=== PATIENT | female | born 1955 | race Caucasian/White ===

== ENCOUNTER 2016-11-01 22:29 | Emergency (ER) | payer OTHER ==
[2016-11-01 22:51] VITALS: O2SAT 96
--- NOTE | 2016-11-01 23:10 | ERPHSYRPT ---
- History of Present Illness Time Seen by Provider: 11/01/16 23:04 Source: patient Exam Limitations: no limitations Physician History: The patient is a 61-year-old female with a friend complaining that a neighbors dog bit her today. 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 It is a great Kyle. It bit her on the left forearm, left abdomen, and left breast. The wounds are all superficial. Her tetanus vaccination was 5-6 years ago. The police have been notified. Her past medical history is significant for kidney stones. Timing/Duration: today Quality: painful Severity: mild Location: torso, extremities Possible Causes: other (dog bite) Associated Symptoms: denies symptoms Allergies/Adverse Reactions: levofloxacin [From Levaquin] Allergy (Verified 10/01/14 14:51) Hx Tetanus, Diphtheria Vaccination/Date Given: Yes (4) Hx Influenza Vaccination/Date Given: No Hx Pneumococcal Vaccination/Date Given: No - Review of Systems Constitutional: No Fever, No Chills Eyes: No Symptoms Ears, Nose, & Throat: No Symptoms Respiratory: No Cough, No Dyspnea Cardiac: No Chest Pain, No Edema, No Syncope Abdominal/Gastrointestinal: No Abdominal Pain, No Nausea, No Vomiting, No Diarrhea Genitourinary Symptoms: No Dysuria Musculoskeletal: No Back Pain, No Neck Pain Skin: Other (skin tears) Neurological: No Dizziness, No Focal Weakness, No Sensory Changes Psychological: No Symptoms Endocrine: No Symptoms Hematologic/Lymphatic: No Symptoms Immunological/Allergic: No Symptoms All Other Systems: Reviewed and Negative - Past Medical History Pertinent Past Medical History: No - Past Surgical History Past Surgical History: Yes Gastrointestinal: Cholecystectomy - Social History Smoking Status: Never smoker Exposure to second hand smoke: No Drug Use: none Patient Lives Alone: No - Nursing Vital Signs Nursing Vital Signs: Initial Vital Signs Temperature 97.8 F Temperature Source Oral Pulse Rate 64 Respiratory Rate 16 Blood Pressure [Right Arm] 117/78 Pain Intensity 2 - Physical Exam General Appearance: no apparent distress, alert Eye Exam: PERRL/EOMI, eyes nml inspection Ears, Nose, Throat Exam: normal ENT inspection, pharynx normal, moist mucous membranes Neck Exam: normal inspection, non-tender, supple, full range of motion Respiratory Exam: normal breath sounds, lungs clear, No respiratory distress Cardiovascular Exam: regular rate/rhythm, normal heart sounds Gastrointestinal/Abdomen Exam: soft Pelvic Exam: not done Rectal Exam: not done Back Exam: normal inspection, normal range of motion, No CVA tenderness, No vertebral tenderness Extremity Exam: normal inspection, normal range of motion Neurologic Exam: alert, oriented x 3, cooperative, normal mood/affect, sensation nml, No motor deficits Skin Exam: laceration (Examination of the skin reveals a small abrasion in the superior left breast, a small abrasion to the left torso, and a small skin tear to the mid left forearm.) SpO2 Interpretation: normal SpO2: 96 Oxygen Delivery: Room Air - Departure Time of Disposition: 23:12 Departure Disposition: Home Clinical Impression: Dog bite Condition: Stable Critical Care Time: No Additional Instructions: You have multiple superficial skin tears from being bitten by a dog. You were given a tetanus vaccination in the ER. You were also given Augmentin 875 in the ER. Continue to take Augmentin 875 twice a day for 10 days. Follow-up as needed. Prescriptions: Amoxicillin/Potassium Clav [Augmentin 875-125 Tablet] 875 mg PO BID #20 tablet
[2016-11-01] MEDS ORDERED: Adacel Vial IM ONE ×2 (23:12→23:15)
[2016-11-01] MEDS ORDERED: Augmentin 875-125 Tablet PO ONE (23:12)
[2016-11-01] MEDS ORDERED: Augmentin 875-125 Tablet ONE (23:14)
[2016-11-01] MEDS ORDERED: BACIGUENT PACKET TP ONE (23:34)
[2016-11-01] MEDS ORDERED: BACIGUENT PACKET ONE (23:35)
[2016-11-01 23:43] VITALS: BP 112/75; PULSE 68
== END 2016-11-01 23:43 | disposition home or self-care (01) ==
LOC: ED 22:29
DX: S50.872A Other superficial bite of left forearm, initial encounter (principal); S20.172A Other superficial bite of breast, left breast, initial encounter; S30.871A Other superficial bite of abdominal wall, initial encounter; S20.112A Abrasion of breast, left breast, initial encounter; S30.811A Abrasion of abdominal wall, initial encounter; W54.0XXA Bitten by dog, initial encounter
CPT/HCPCS: 90471; 90715; 99282; 99284; A9270-GY

== ENCOUNTER 2021-08-29 19:59 | Emergency (ER) | payer MEDICARE, OTHER ==
--- NOTE | 2021-08-29 20:04 | ERPHSYRPT ---
- History of Present Illness Time Seen by Provider: 08/29/21 20:04 Source: patient, family Exam Limitations: no limitations Physician History: This is a 66-year-old white female is right-handed and tripped over her shoelace and fell onto her right outstretched hand. Occurred prior to arrival. She has no other pain complaints. She presents with right wrist pain and deformity. Patient has had Nubain in the past which she tolerated well. she does not want any narcotics for home Occurred: just prior to arrival Method of Injury: fell Quality: aching, throbbing Severity of Pain-Max: moderate Severity of Pain-Current: moderate Extremities Pain Location: wrist: right Modifying Factors: Improves With: movement Associated Symptoms: none Allergies/Adverse Reactions: levofloxacin [From LevConnectSoft] Allergy (Verified 11/01/16 23:21) Home Medications: Amlodipine Besylate 10 mg [Norvasc 10 MG] 1 mg HS 11/01/16 [History] Escitalopram Oxalate 10 mg [Lexapro 10 MG] 1 tab DAILY 11/01/16 [History] Hx Tetanus, Diphtheria Vaccination/Date Given: Yes (4) Hx Influenza Vaccination/Date Given: No Hx Pneumococcal Vaccination/Date Given: No Travel Risk - International Travel Have you traveled outside of the country in past 3 weeks: No - Coronavirus Screening Are you exhibiting any of the following symptoms?: No Close contact with a COVID-19 positive Pt in past 14-21 Days: No - Review of Systems Constitutional: No Symptoms Eyes: No Symptoms Ears, Nose, & Throat: No Symptoms Respiratory: No Symptoms Cardiac: No Symptoms Abdominal/Gastrointestinal: No Symptoms Genitourinary Symptoms: No Symptoms Musculoskeletal: Deformity (right wrist), Fall, Injury Skin: No Symptoms Neurological: No Symptoms Psychological: No Symptoms Endocrine: No Symptoms Hematologic/Lymphatic: No Symptoms Immunological/Allergic: No Symptoms All Other Systems: Reviewed and Negative - Past Medical History Pertinent Past Medical History: No Cardiac History: Hypertension Musculoskeletal History: Arthritis Other Medical History: C/O O.A. TO B HANDS, ELBOW, BACK, KNEES, - Past Surgical History Past Surgical History: No Gastrointestinal: Cholecystectomy - Social History Smoking Status: Never smoker Exposure to second hand smoke: No Drug Use: none Patient Lives Alone: No - Physical Exam General Appearance: no apparent distress, alert, anxiety Eyes, Ears, Nose, Throat Exam: normal ENT inspection, moist mucous membranes Neck Exam: normal inspection, non-tender, supple, full range of motion Cardiovascular/Respiratory Exam: chest non-tender, no respiratory distress Abdominal Exam: non-tender Back Exam: normal inspection Shoulder Exam: normal inspection, non-tender, no evidence of injury, normal ROM Elbow/Forearm Exam: normal inspection, non-tender, no evidence of injury, ecchymosis Wrist Exam: bone tenderness, deformity, soft tissue tenderness, swelling Hand Exam: normal inspection, non-tender, no evidence of injury, normal ROM Neuro/Tendon Exam: normal sensation, normal motor functions, normal tendon functions Mental Status Exam: alert, oriented x 3, cooperative Skin Exam: normal color, warm, dry SpO2 Interpretation: normal O2 Delivery: Room Air - Course Nursing assessment & vital signs reviewed: Yes Ordered Tests: Active Orders 24 hr Category Date Time Status WRIST (MIN 3 VIEWS) Stat Exams 08/29/21 Ordered - Progress Progress: improved, pain not gone completely, re-examined Progress Note: 08/29/21 20:40 post splint nv check normal Counseled pt/family regarding: diagnosis, need for follow-up, rad results - Departure Departure Disposition: Home Clinical Impression: Right wrist fracture Condition: Stable Critical Care Time: No Referrals: KOMAL VILLALOBOS MD [Primary Care Provider] - [facility]-Ortho M-F [phone] (right distal radius fx) Additional Instructions: ice pack to area 3 times daily. use tylenol and ibuprofen for pain control. follow up tomorrow, 08/30/21, at [facility] orthopedic walk in clinic at 8am for further evaluation and management
[2021-08-29] MEDS ORDERED: Nubain 10 MG/ML ONE (20:37)
[2021-08-29] MEDS ORDERED: ZOFRAN ODT 4 MG ONE (20:37)
[2021-08-29] MEDS: Nubain 10 MG/ML IM ONE (20:39)
[2021-08-29] MEDS: ZOFRAN ODT 4 MG PO ONE (20:39)
[2021-08-29 21:02] VITALS: BP 142/75; PULSE 87; O2SAT 98
--- NOTE | 2021-08-31 01:19 | XRAY ---
Exam: 3 views of the left wrist from 08/29/2021. Comparison: [None.] Indication: Fall, injury, pain. Findings: AP, oblique, and 2 lateral radiographs of the left wrist were obtained. The bones are significantly demineralized. A mildly impacted, comminuted fracture of the distal left radius is seen. There appears to be a fracture line which extends into the distal radial articular surface of the radius along the ulnar aspect. There is minimal posterior cortical step-off deformity and slight posterior angulation of the radius. A tiny round calcification is seen adjacent to the right ulnar styloid process. However, its smooth contour suggests that this is probably old. The carpal bones appear grossly intact. Impression: 1. Mildly comminuted acute fracture of the distal left radius, as discussed above. 2. Bone demineralization.
== END 2021-08-29 20:56 | disposition home or self-care (01) ==
LOC: ED 19:59
DX: S52.502A Unspecified fracture of the lower end of left radius, initial encounter for closed fracture (principal); W01.198A Fall on same level from slipping, tripping and stumbling with subsequent striking against other object, initial encounter; M25.532 Pain in left wrist; I10 Essential (primary) hypertension; Z79.899 Other long term (current) drug therapy
CPT/HCPCS: 73110; 96372; 99284; A4570; J2300; Q0162

== ENCOUNTER 2024-03-12 20:52 | Emergency (ER) | payer MEDICARE ==
--- NOTE | 2024-03-12 21:09 | ERPHSYRPT ---
- History of Present Illness Time Seen by Provider: 03/12/24 21:07 Source: patient Exam Limitations: no limitations Physician History: 68-year-old female presents to our ED for evaluation of nausea and vomiting. No diarrhea no rash no abdominal pain no chest pain. No dysuria. Patient states she is unable to tolerate p.o. Symptoms are mild to moderate in intensity. No specific worsening or improving factors. Patient reports her symptoms started yesterday at 7 PM. Patient denies fever. No dizziness. No weakness. Patient otherwise feels well. She voices no other complaints or concerns at this time. Portions of this note were created with voice recognition technology. There may be grammatical, spelling, punctuation or sound alike errors Timing/Duration: today Severity: moderate Modifying Factors: Improves With: nothing Associated Symptoms: denies symptoms Allergies/Adverse Reactions: levofloxacin [From Levaquin] Allergy (Verified 03/12/24 21:00) syncopy twice " Home Medications: Alendronate Sodium [Fosamax] 70 mg PO WEEKLY 07/11/23 [History] Amlodipine Besylate [Norvasc] 10 mg PO DAILY 07/11/23 [History] Atorvastatin Calcium 10 mg PO DAILY 07/11/23 [History] Cholecalciferol (Vitamin D3) [Vitamin D] 1,000 unit PO DAILY 07/11/23 [History] Omeprazole 20 mg PO DAILY 03/12/24 [History] Ondansetron [Ondansetron Odt ] 4 mg PO Q6HPRN PRN 03/12/24 [History] Hx Tetanus, Diphtheria Vaccination/Date Given: Yes (4) Hx Influenza Vaccination/Date Given: No Hx Pneumococcal Vaccination/Date Given: No - Review of Systems Constitutional: No Symptoms, No Fever, No Chills Eyes: No Symptoms Ears, Nose, & Throat: No Symptoms Respiratory: No Symptoms, No Cough, No Dyspnea Cardiac: No Symptoms, No Chest Pain, No Edema, No Syncope Abdominal/Gastrointestinal: No Symptoms, No Abdominal Pain, No Nausea, No Vomiting, No Diarrhea Genitourinary Symptoms: No Symptoms, No Dysuria Musculoskeletal: No Symptoms, No Back Pain, No Neck Pain Skin: No Symptoms, No Rash Neurological: No Symptoms, No Dizziness, No Focal Weakness, No Sensory Changes Psychological: No Symptoms Endocrine: No Symptoms Hematologic/Lymphatic: No Symptoms Immunological/Allergic: No Symptoms All Other Systems: Reviewed and Negative - Past Medical History Pertinent Past Medical History: No Neurological History: No Pertinent History ENT History: No Pertinent History Cardiac History: No Pertinent History Respiratory History: No Pertinent History Endocrine Medical History: No Pertinent History Musculoskeletal History: No Pertinent History GI Medical History: No Pertinent History History: No Pertinent History Psycho-Social History: No Pertinent History Female Reproductive Disorders: No Pertinent History Other Medical History: C/O O.A. TO B HANDS, ELBOW, BACK, KNEES, - Past Surgical History Past Surgical History: Yes Neuro Surgical History: No Pertinent History Cardiac: No Pertinent History Respiratory: No Pertinent History Gastrointestinal: Cholecystectomy Genitourinary: No Pertinent History Musculoskeletal: Orthopedic Surgery Female Surgical History: No Pertinent History Other Surgical History: rt hand and elbow, states hx of kidney stones - Social History Smoking Status: Never smoker Exposure to second hand smoke: No Drug Use: none Patient Lives Alone: No - Nursing Vital Signs Nursing Vital Signs: Initial Vital Signs Blood Pressure 143/95 03/12/24 21:01 O2 Sat by Pulse Oximetry 84 L 03/12/24 21:01 Pain Scale Pain Intensity 0 - Physical Exam General Appearance: no apparent distress, alert Eye Exam: PERRL/EOMI, eyes nml inspection Ears, Nose, Throat Exam: normal ENT inspection, dry mucous membranes Neck Exam: normal inspection, non-tender, supple, full range of motion Respiratory Exam: normal breath sounds, lungs clear, No respiratory distress Cardiovascular Exam: regular rate/rhythm, normal heart sounds, normal peripheral pulses Gastrointestinal/Abdomen Exam: soft, normal bowel sounds, No tenderness, No mass Back Exam: normal inspection, normal range of motion, No CVA tenderness, No vertebral tenderness Extremity Exam: normal inspection, normal range of motion, pelvis stable Neurologic Exam: alert, oriented x 3, cooperative, normal mood/affect, nml cerebellar function, nml station & gait, sensation nml, No motor deficits Skin Exam: normal color, warm, dry, No rash Lymphatic Exam: No adenopathy SpO2 Interpretation: normal O2 Delivery: Room Air - Course Nursing assessment & vital signs reviewed: Yes Ordered Tests: Active Orders 24 hr Category Date Time Status IV Insertion STAT Care 03/12/24 21:06 Active CBC W DIFF Stat Lab 03/12/24 21:10 Completed CMP Stat Lab 03/12/24 21:10 Completed LIPASE Stat Lab 03/12/24 21:10 Completed Manual Differential NC Stat Lab 03/12/24 21:10 Completed TROPONIN Q4H Lab 03/12/24 21:10 Completed TROPONIN Q4H Lab 03/13/24 01:15 Ordered TROPONIN Q4H Lab 03/13/24 05:15 Ordered UA W/RFX UR CULTURE Stat Lab 03/12/24 22:28 Completed Medication Summary Discontinued Medications Generic Name Dose Route Start Last Admin Trade Name Stan PRN Reason Stop Dose Admin Sodium Chloride 1,000 mls @ 999 mls/hr 03/12/24 21:06 03/12/24 22:16 Sodium Chloride 0.9% 1000 Ml IV 03/12/24 22:06 Infused .Q1H1M STA Infusion Sodium Chloride Confirm 03/12/24 21:12 Sodium Chloride 0.9% 1000 Ml Administered 03/12/24 21:13 Dose 1,000 mls @ ud .ROUTE .STK-MED ONE Ketorolac Tromethamine 30 mg 03/12/24 22:39 03/12/24 22:42 Ketorolac Tromethamine 30 Mg/Ml Inj IV 03/12/24 22:40 30 mg STAT ONE Administration Ketorolac Tromethamine Confirm 03/12/24 22:42 Ketorolac Tromethamine 30 Mg/Ml Inj Administered 03/12/24 22:43 Dose 30 mg .ROUTE .STK-MED ONE Ondansetron HCl 4 mg 03/12/24 21:06 03/12/24 21:17 Ondansetron Hcl 4 Mg/2 Ml Vial IV 03/12/24 21:07 4 mg STAT ONE Administration Ondansetron HCl Confirm 03/12/24 21:12 Ondansetron Hcl 4 Mg/2 Ml Vial Administered 03/12/24 21:13 Dose 4 mg .ROUTE .STK-MED ONE Prochlorperazine Edisylate 10 mg 03/12/24 22:39 03/12/24 22:41 Prochlorperazine Edisylate 10 Mg/2 Ml Vial IV 03/12/24 22:40 10 mg STAT ONE Administration Prochlorperazine Edisylate Confirm 03/12/24 22:40 Prochlorperazine Edisylate 10 Mg/2 Ml Vial Administered 03/12/24 22:41 Dose 10 mg .ROUTE .STK-MED ONE Lab/Rad Data: Laboratory Result Diagrams 03/12/24 21:10 03/12/24 21:10 Laboratory Results 03/12/24 03/12/24 03/12/24 Range/Units 22:28 21:10 21:10 WBC (3.98-10.04) x10^3/uL RBC (3.93-5.22) x10^6/uL Hgb (11.2-15.7) g/dL Hct (34.1-44.9) % MCV (79.4-94.8) fL MCH (25.6-32.2) pg MCHC (32.2-35.5) g/dL RDW (11.7-14.4) % Plt Count (182-369) x10^3/uL MPV (9.4-12.3) fL Sodium 137 (135-145) mmol/L Potassium 4.5 (3.5-5.1) mmol/L Chloride 100 (98-107) mmol/L Carbon Dioxide 24 (22-30) mmol/L Anion Gap 17.9 H (5-15) MEQ/L BUN 25 H (7-17) mg/dL Creatinine 0.78 (0.52-1.04) mg/dL Estimated GFR 82.7 ML/MIN Glucose 144 H (74-106) mg/dL Calcium 10.4 H (8.4-10.2) mg/dL Total Bilirubin 1.10 (0.2-1.3) mg/dL AST 108 H (14-36) U/L ALT 87 H (0-35) U/L Alkaline Phosphatase 71 (38-126) U/L Troponin I < 0.012 (0.000-0.033) ng/mL Serum Total Protein 8.6 H (6.3-8.2) g/dL Albumin 5.0 (3.5-5.0) g/dL Lipase 120 (23-300) U/L Urine Color Yellow (Yellow) Urine Appearance Clear (Clear) Urine pH 6.5 (4.6-8.0) Ur Specific [place] 1.020 (1.005-1.030) Urine Protein 30 (Negative) Urine Glucose (UA) Negative (Negative) mg/dL Urine Ketones 40 A (Negative) Urine Blood Negative (Negative) Urine Nitrite Negative (Negative) Urine Bilirubin Negative (Negative) Urine Urobilinogen 0.2 (0.2) mg/dL Ur Leukocyte Esterase Negative (Negative) U Hyaline Cast (Auto) NONE SEEN (0-2) /LPF Urine Microscopic RBC 0-2 (0-5) /HPF Urine Microscopic WBC 0-2 (0-5) /HPF Ur Epithelial Cells None Seen (None Seen) /HPF Urine Bacteria None Seen (None Seen) /HPF Urine Culture Reflexed NO (NO) 03/12/24 Range/Units 21:10 WBC 15.7 H (3.98-10.04) x10^3/uL RBC 4.91 (3.93-5.22) x10^6/uL Hgb 15.1 (11.2-15.7) g/dL Hct 44.7 (34.1-44.9) % MCV 91.0 (79.4-94.8) fL MCH 30.8 (25.6-32.2) pg MCHC 33.8 (32.2-35.5) g/dL RDW 13.2 (11.7-14.4) % Plt Count 395 H (182-369) x10^3/uL MPV 9.5 (9.4-12.3) fL Sodium (135-145) mmol/L Potassium (3.5-5.1) mmol/L Chloride (98-107) mmol/L Carbon Dioxide (22-30) mmol/L Anion Gap (5-15) MEQ/L BUN (7-17) mg/dL Creatinine (0.52-1.04) mg/dL Estimated GFR ML/MIN Glucose (74-106) mg/dL Calcium (8.4-10.2) mg/dL Total Bilirubin (0.2-1.3) mg/dL AST (14-36) U/L ALT (0-35) U/L Alkaline Phosphatase (38-126) U/L Troponin I (0.000-0.033) ng/mL Serum Total Protein (6.3-8.2) g/dL Albumin (3.5-5.0) g/dL Lipase (23-300) U/L Urine Color (Yellow) Urine Appearance (Clear) Urine pH (4.6-8.0) Ur Specific [place] (1.005-1.030) Urine Protein (Negative) Urine Glucose (UA) (Negative) mg/dL Urine Ketones (Negative) Urine Blood (Negative) Urine Nitrite (Negative) Urine Bilirubin (Negative) Urine Urobilinogen (0.2) mg/dL Ur Leukocyte Esterase (Negative) U Hyaline Cast (Auto) (0-2) /LPF Urine Microscopic RBC (0-5) /HPF Urine Microscopic WBC (0-5) /HPF Ur Epithelial Cells (None Seen) /HPF Urine Bacteria (None Seen) /HPF Urine Culture Reflexed (NO) - Progress Progress: improved Progress Note: 68-year-old female presents to our ED for evaluation of nausea and vomiting. No pain. Physical exam exam reveals dry oral mucous membranes. Laboratory workup reveals a leukocytosis however patient has no signs of infection. No fever no pain, lungs are clear urinalysis negative for UTI. IV fluids infused. Patient received antiemetics. Nausea resolved. Patient tolerated p.o. Patient states she feels much better and she is ready for discharge. The leukocytosis is of unclear etiology and significance. However patient agrees to follow-up with her primary care doctor within 48 hours for evaluation. Portions of this note were created with voice recognition technology. There may be grammatical, spelling, punctuation or sound alike errors Complexity of problem addressed is moderate acute complicated no critical care time 03/12/24 23:05 Counseled pt/family regarding: lab results, diagnosis - Departure Departure Disposition: Home Clinical Impression: Nausea and vomiting, Leukocytosis, Dehydration Condition: Stable Critical Care Time: No Referrals: PITER RUSSELL MD [Primary Care Provider] - Follow up/PCP as directed Instructions: Dehydration, Adult ED, Nausea and vomiting in adults Additional Instructions: Please follow-up with your family doctor within 48 hours for reevaluation. Discharge/Care Plan MAYA AVILA was seen on 03/12/24 in the Emergency Room. The patient was counseled regarding Diagnosis,Lab results, Imaging studies, need for follow up and when to return to the Emergency Room. Prescriptions given: Discharge Note I have spoken with the patient and/or caregivers. I have explained the patient's condition, diagnosis and treatment plan based on the information available to me at this time. I have answered the patient's and/or caregiver's questions and addressed any concerns. The patient and/or caregivers have as good understanding of the patient's diagnosis, condition and treatment plan as can be expected at this point. The vital signs have been stable. The patient's condition is stable and appropriate for discharge from the emergency department. The patient will pursue further outpatient evaluation with the primary care physician or other designated or consulting physician as outlined in the disc harge instructions. The patient and/or caregivers are agreeable to this plan of care and follow-up instructions have been explained in detail. The patient and/or caregivers have received these instruction. The patient/and or caregivers are aware that any significant change in condition or worsening of symptoms should prompt an immediate return to this or the closest emergency department or call 911.
[2024-03-12 21:10] VITALS: RESP 16; TEMP 97.1
[2024-03-12] MEDS ORDERED: Sodium Chloride 0.9% 1000 ML 1,000 ML ONE (21:12)
[2024-03-12] MEDS ORDERED: Zofran 4 MG/2 ML VIAL ONE (21:12)
[2024-03-12 21:14] LABS: Hematocrit 44.7 % (34.1-44.9); Hemoglobin 15.1 g/dL (11.2-15.7); Mean Corpuscular Hemoglobin 30.8 pg (25.6-32.2); Mean Corpuscular Hgb Concent. 33.8 g/dL (32.2-35.5); Mean Platelet Volume 9.5 fL (9.4-12.3); Platelet Count 395 x10^3/uL (182-369); Red Blood Count 4.91 x10^6/uL (3.93-5.22); Red Cell Distribution Width 13.2 % (11.7-14.4); White Blood Count 15.7 x10^3/uL (3.98-10.04)
[2024-03-12] MEDS: Sodium Chloride 0.9% 1000 ML 1,000 ML IV STA (21:14)
[2024-03-12] MEDS: Zofran 4 MG/2 ML VIAL IV ONE (21:17)
[2024-03-12 21:28] LABS: ANION GAP 17.9 MEQ/L (5-15); BILIRUBIN,TOTAL 1.1 mg/dL (0.2-1.3); Calcium 10.4 mg/dL (8.4-10.2); Creatinine 1 0.78 mg/dL (0.52-1.04); EST GLOMERULAR FILTRATION RATE 82.7 ML/MIN; Potassium 4.5 mmol/L (3.5-5.1); Total Protein 8.6 g/dL (6.3-8.2)
[2024-03-12] MEDS ORDERED: Compazine 10 MG/2 ML ONE (22:40)
[2024-03-12] MEDS: Compazine 10 MG/2 ML IV ONE (22:41)
[2024-03-12] MEDS: TORAdol 30 mg Injection IV ONE (22:42)
[2024-03-12] MEDS ORDERED: TORAdol 30 mg Injection ONE (22:42)
[2024-03-12 22:45] LABS: Appearance Clear (Clear); Bacteria None Seen /HPF (None Seen); Bilirubin Negative (Negative); Blood Negative (Negative); Epithelial Cells None Seen /HPF (None Seen); Glucose, Urine Negative (Negative); Hyaline Casts NONE SEEN /LPF (0-2); Ketones 40 (Negative); Leukocyte Esterase Negative (Negative); Nitrite Negative (Negative); Ph 6.5 (4.6-8.0); Protein,Urine Dip 30 (Negative); RBC 0-2 /HPF (0-5); Urobilinogen 0.2 mg/dL (0.2); WBC 0-2 /HPF (0-5)
[2024-03-12 23:02] VITALS: BP 136/98; PULSE 85; O2SAT 95
[2024-03-13 00:55] LABS: Lymphocytes 11 % (19.3-51.7); Monocyte 3 % (4.7-12.5); Neutrophils 86 % (34.0-71.1); Platelet Estimate NORMAL (NORMAL); Total Cells Counted 100
== END 2024-03-12 23:09 | disposition home or self-care (01) ==
LOC: ED 20:52
DX: R11.2 Nausea with vomiting, unspecified (principal); D72.829 Elevated white blood cell count, unspecified; E86.0 Dehydration
CPT/HCPCS: 36415; 80053; 81001; 83690; 84484; 85025; 96374; 96375; 99283; 99284; J1885; J2405

== ENCOUNTER 2024-03-29 09:58 | Emergency (ER) | payer MEDICARE ==
[2024-03-29 10:13] VITALS: TEMP 97
--- NOTE | 2024-03-29 10:32 | ERPHSYRPT ---
- History of Present Illness Time Seen by Provider: 03/29/24 10:25 Source: patient Exam Limitations: no limitations Patient Subjective Stated Complaint: pt states she feels like she is anxious and is claustrophic since last night she states she has had 2 other episodes like this since having the flu Triage Nursing Assessment: pt alert, walked in, resp easy, skin w/d/p. appears anxious at times, moves all ext well , brayan any pain or injury . Physician History: pt states she feels like she is anxious and is claustrophic since last night she states she has had 2 other episodes like this since having the flu Timing/Duration: week(s) (1-2 weeks) Severity: moderate Associated Symptoms: other (severe anxiety episodes) Allergies/Adverse Reactions: levofloxacin [From Levaquin] Allergy (Verified 03/29/24 10:09) syncopy twice " Home Medications: Alendronate Sodium [Fosamax] 70 mg PO WEEKLY 07/11/23 [History] Amlodipine Besylate [Norvasc] 10 mg PO DAILY 07/11/23 [History] Atorvastatin Calcium 10 mg PO DAILY 07/11/23 [History] Cholecalciferol (Vitamin D3) [Vitamin D] 1,000 unit PO DAILY 07/11/23 [History] Omeprazole 20 mg PO DAILY 03/12/24 [History] Ondansetron [Ondansetron Odt ] 4 mg PO Q6HPRN PRN 03/12/24 [History] Hx Tetanus, Diphtheria Vaccination/Date Given: Yes (4) Hx Influenza Vaccination/Date Given: No Hx Pneumococcal Vaccination/Date Given: No Immunizations Up to Date: Yes Travel Risk - International Travel Have you traveled outside of the country in past 3 weeks: No - Emerging Infectious Disease Are you exhibiting symptoms associated with any current EIDs: No Symptoms: Vomitting - Review of Systems Constitutional: No Fever, No Chills Eyes: No Symptoms Ears, Nose, & Throat: No Symptoms Respiratory: No Cough, No Dyspnea Cardiac: No Chest Pain, No Edema, No Syncope Abdominal/Gastrointestinal: No Abdominal Pain, No Nausea, No Vomiting, No Diarrhea Genitourinary Symptoms: No Dysuria Musculoskeletal: No Back Pain, No Neck Pain Skin: No Rash Neurological: No Dizziness, No Focal Weakness, No Sensory Changes Psychological: Anxiety Endocrine: No Symptoms All Other Systems: Reviewed and Negative - Past Medical History Pertinent Past Medical History: No Neurological History: No Pertinent History ENT History: No Pertinent History Cardiac History: No Pertinent History Respiratory History: No Pertinent History Endocrine Medical History: No Pertinent History Musculoskeletal History: No Pertinent History GI Medical History: No Pertinent History History: No Pertinent History Psycho-Social History: No Pertinent History Female Reproductive Disorders: No Pertinent History Other Medical History: C/O O.A. TO B HANDS, ELBOW, BACK, KNEES, flu 2023 - Past Surgical History Past Surgical History: Yes Neuro Surgical History: No Pertinent History Cardiac: No Pertinent History Respiratory: No Pertinent History Gastrointestinal: Cholecystectomy Genitourinary: No Pertinent History Musculoskeletal: Orthopedic Surgery Female Surgical History: No Pertinent History Other Surgical History: rt hand and elbow, states hx of kidney stones - Social History Smoking Status: Never smoker Exposure to second hand smoke: No Drug Use: none Patient Lives Alone: No - Social Determinants of Health Will the patient participate in the screening: Yes Do you worry about a steady place to live?: No Do you have any problems with any of the following?: No known problems In the past 12 months,have you had to go without utilities?: No Transportation Issues: No Has anyone in your support network made you feel unsafe?: No Have you or anyone in your house had to go without enough: No - Nursing Vital Signs Nursing Vital Signs: Initial Vital Signs Temperature 97.0 F 03/29/24 10:12 Pulse Rate 71 03/29/24 10:12 Respiratory Rate 18 03/29/24 10:12 Blood Pressure 142/87 03/29/24 10:12 O2 Sat by Pulse Oximetry 97 03/29/24 10:12 Pain Scale Pain Intensity 0 - Physical Exam General Appearance: no apparent distress, alert Eye Exam: PERRL/EOMI, eyes nml inspection Ears, Nose, Throat Exam: normal ENT inspection, TMs normal, pharynx normal, moist mucous membranes Neck Exam: normal inspection, non-tender, supple, full range of motion Respiratory Exam: normal breath sounds, lungs clear, No respiratory distress Cardiovascular Exam: regular rate/rhythm, normal heart sounds, normal peripheral pulses Gastrointestinal/Abdomen Exam: soft, normal bowel sounds, No tenderness, No mass Back Exam: normal inspection, normal range of motion, No CVA tenderness, No vertebral tenderness Extremity Exam: normal inspection, normal range of motion, pelvis stable Neurologic Exam: alert, oriented x 3, cooperative, normal mood/affect, nml cerebellar function, nml station & gait, sensation nml, No motor deficits Skin Exam: normal color, warm, dry, No rash Lymphatic Exam: No adenopathy SpO2: 97 - Course Nursing assessment & vital signs reviewed: Yes Ordered Tests: Active Orders 24 hr Category Date Time Status CBC W DIFF Stat Lab 03/29/24 10:22 Ordered CMP Stat Lab 03/29/24 10:22 Ordered FREE TRIODOTHYRONINE Stat Lab 03/29/24 Ordered TSH, 3RD Generation Stat Lab 03/29/24 10:22 Ordered - Progress Progress: improved Counseled pt/family regarding: lab results, diagnosis, need for follow-up, rad results Medical Desision Making - Independent Historian Additional History obtained from: Family - Diagnostic Testing Diagnostic test were ordered, analyzed, and reviewed by me: Yes - Risk of complications Low Risk: Low risk of morbidity from additional dx testing or treatment - Departure Departure Disposition: Home Clinical Impression: Panic attacks Condition: Stable Critical Care Time: No Referrals: PITER RUSSELL MD [Primary Care Provider] - Follow up with PCP 2 days Instructions: Anxiety, Adult (DC) Additional Instructions: Discharge/Care Plan MAYA AVILA was seen on 03/29/24 in the Emergency Room. The patient was counseled regarding Diagnosis,Lab results, Imaging studies, need for follow up and when to return to the Emergency Room. Prescriptions given: Discharge Note I have spoken with the patient and/or caregivers. I have explained the patient's condition, diagnosis and treatment plan based on the information available to me at this time. I have answered the patient's and/or caregiver's questions and addressed any concerns. The patient and/or caregivers have as good understanding of the patient's diagnosis, condition and treatment plan as can be expected at this point. The vital signs have been stable. The patient's condition is stable and appropriate for discharge from the emergency department. The patient will pursue further outpatient evaluation with the primary care physician or other designated or consulting physician as outlined in the discharge instructions. The patient and/or caregivers are agreeable to this plan of care and follow-up instructions have been explained in detail. The patient and/or caregivers have received these instruction. The patient/and or caregivers are aware that any significant change in condition or worsening of symptoms should prompt an immediate return to this or the closest emergency department or call 911. MAYA AVILA was seen on 03/29/24 n the Emergency Room. At that time you were treated for an emergent condition, during your visit Laboratory, Radiology and/or other procedures may have been ordered. It is very important that you follow-up with your Primary Care Physician PITER RUSSELL within the next 24- 48 hours to review your Emergency Room visit and the final results of testing that was ordered. Some test results such as Urine Cultures, Blood Cultures, and other cultures if ordered will not be finalized for 24-48 hours. If you do not have a Primary Care Provider please call the medical records department at [phone] ext [phone] to obtain a copy of your results or you may sign into our patient portal to obtain these results by visiting us @ [email or web address] and completing the following steps: 1. Click on the Patient Portal link 2. Click the Patient Self Enrollment Link to complete the enrollment form and entering your 3. Once the enrollment form is completed you will receive an email with a temporary ID and password at the email address you provided. 4. Next choose a user name and password. Your user name must be at least 4 characters long and your password must be at least 4 characters long. 5. Choose a security question from the list and provide your answer to the question. If you already have signed into the Health Portal you may access your Health Care Information 13/11 by the following steps: 1. Login to our website @ [email or web address] 2. Enter your original user name and password. FAQS The [facility] Health Portal is an online tool that contains your Lab Results, Radiology Reports, Visit History, Discharge Instructions and Health Summary Lab and Radiology Results will not be available for 72 hours on the portal. The Portal is a secure site, passwords are encryted and URLs are re-written so they cannot be copied and pasted. You and authorized family members are the only ones who can access your Portal. Also there is a timeout feature that protects your information if you leave the Portal page open. If you have technical difficulty please use the Contact Us link on the page this will allow you to submit any questions you have regarding the Portal or you may contact the Medical Record Department at [phone] ext [phone]. Prescriptions: Diazepam 5 mg [Valium 5 MG] 5 mg PO TID #15 tablet
[2024-03-29] MEDS ORDERED: Ativan 2 MG/1 ML VIAL ONE (10:39)
[2024-03-29] MEDS: Ativan 2 MG/1 ML VIAL IM ONE (10:41)
[2024-03-29 10:49] LABS: Absolute Neutrophil Ct (ANC) 4.35 x10^3/uL (1.56-6.13); BASOPHIL % 0.8 % (0.1-1.2); Basophil (Absolute #) 0.06 x10^3/uL (0.01-0.08); Eosinophil (Absolute #) 0.16 x10^3/uL (0.04-0.36); Hematocrit 42.2 % (34.1-44.9); Hemoglobin 13.8 g/dL (11.2-15.7); IMMATURE GRAN # 0.01 x10^3u/L (0.001-0.031); IMMATURE GRAN % 0.1 % (0.001-0.429); Lymphocyte (Absolute #) 2.78 x10^3/uL (1.18-3.74); Lymphocytes % 35.1 % (19.3-51.7); Mean Cell Volume 92.7 fL (79.4-94.8); Mean Corpuscular Hemoglobin 30.3 pg (25.6-32.2); Mean Corpuscular Hgb Concent. 32.7 g/dL (32.2-35.5); Mean Platelet Volume 9.4 fL (9.4-12.3); Monocyte (Absolute #) 0.57 x10^3/uL (0.24-0.86); Monocytes % 7.2 % (4.7-12.5); Neutrophil % 54.8 % (34.0-71.1); Platelet Count 297 x10^3/uL (182-369); Red Blood Count 4.55 x10^6/uL (3.93-5.22); Red Cell Distribution Width 13.2 % (11.7-14.4); White Blood Count 7.9 x10^3/uL (3.98-10.04)
[2024-03-29 11:47] VITALS: PULSE 70; O2SAT 98
[2024-03-29 12:02] LABS: ALBUMIN 4.7 g/dL (3.5-5.0); ANION GAP 14.4 MEQ/L (5-15); Calcium 9.7 mg/dL (8.4-10.2); Creatinine 1 0.71 mg/dL (0.52-1.04); EST GLOMERULAR FILTRATION RATE 92.6 ML/MIN; Potassium 3.8 mmol/L (3.5-5.1); Total Protein 8.3 g/dL (6.3-8.2)
[2024-03-29 12:04] VITALS: BP 128/86; RESP 16
[2024-03-29 12:31] LABS: FREE TRIODOTHYRONINE 4.73 pg/mL (2.77-5.27); TSH, 3RD Generation 2.659 mIU/L (0.470-4.680)
== END 2024-03-29 12:15 | disposition home or self-care (01) ==
LOC: ED 09:58
DX: F41.0 Panic disorder [episodic paroxysmal anxiety] (principal); Z79.899 Other long term (current) drug therapy
CPT/HCPCS: 36415; 80053; 83036; 84439; 84443; 84481; 85025; 86376; 96372; 99283; J2060